=== PATIENT | female | born 1975 | race Caucasian/White ===

== ENCOUNTER → 2017-03-16 | Outpatient (CLI) | payer OTHER ==
[~2017-03-16] MED LIST: IBU-8800 MG PO; IMITREX PO; LOMOTIL 0.025 M1 TA1 PO; MACROBID100 M1 PO; MOTRIN800 MG PO; NORFLEX100 MG PO; PEN-VEE K500 MG PO; SYNTHROID,LEV150 MCG PO; VICODIN ES 7501 TAB PO; ZOFRAN ODT4 MG SL
[2017-03-16 16:09] LABS: ALBUMIN 3.4 gm/dl (3.1-4.5); ALKALINE PHOSPHATASE 75 U/L (45-117); BUN 16 mg/dl (7-24); CHLORIDE 104 mmol/L (98-107); CHOLESTEROL 191 mg/dL (<200); CREATININE 0.93 mg/dL (0.55-1.02); FREE T4 1.44 ng/dl (0.76-1.46); HDL CHOLESTEROL 71 mg/dl (40-60); LDL CHOLESTEROL 96 mg/dL (9-159); POTASSIUM 3.5 mmol/L (3.5-5.1); SGOT/AST 16 IU/L (3-35); SGPT/ALT 19 U/L (12-78); SODIUM 140 mmol/L (136-145); TRIGLYCERIDES 121 mg/dl (<150); VLDL CHOLESTEROL 24 mg/dL (6-40)
[2017-03-16 16:14] LABS: THYROID STIM HORMONE (HS) 0.103 uIU/ml (0.358-4.75)
== END | disposition home or self-care (01) ==
LOC: LAB 14:18 → MAMMO 14:40
PROVIDERS: Internal Medicine
DX: Z12.31 Encounter for screening mammogram for malignant neoplasm of breast (principal); E03.9 Hypothyroidism, unspecified; E78.2 Mixed hyperlipidemia

== ENCOUNTER → 2017-10-13 | Outpatient (CLI) | payer OTHER | END | disposition home or self-care (01) | LOC: RAD 11:39 | DX: S93.492A Sprain of other ligament of left ankle, initial encounter (principal); X58.XXXA Exposure to other specified factors, initial encounter; Y93.89 Activity, other specified; Y92.89 Other specified places as the place of occurrence of the external cause; Y99.8 Other external cause status ==

== ENCOUNTER → 2018-03-27 | Outpatient (CLI) | payer OTHER ==
[2018-03-27 08:37] LABS: ALBUMIN 3.2 gm/dl (3.1-4.5); ALKALINE PHOSPHATASE 75 U/L (45-117); BUN 18 mg/dl (7-24); CHLORIDE 105 mmol/L (98-107); CHOLESTEROL 184 mg/dL (<200); CREATININE 0.97 mg/dL (0.55-1.02); FREE T4 1.18 ng/dl (0.76-1.46); HDL CHOLESTEROL 66 mg/dl (40-60); LDL CHOLESTEROL 95 mg/dL (9-159); POTASSIUM 4.4 mmol/L (3.5-5.1); SGOT/AST 11 IU/L (3-35); SGPT/ALT 18 U/L (12-78); SODIUM 140 mmol/L (136-145); VLDL CHOLESTEROL 23 mg/dL (6-40)
[2018-03-27 08:42] LABS: THYROID STIM HORMONE (HS) 0.895 uIU/ml (0.358-4.75)
== END | disposition home or self-care (01) ==
LOC: LAB 07:46
PROVIDERS: Internal Medicine Endocrinology, Diabetes & Metabolism
DX: E03.9 Hypothyroidism, unspecified (principal); E78.2 Mixed hyperlipidemia

== ENCOUNTER 2018-06-19 22:03 | Emergency (ER) | payer OTHER ==
[~2018-06-19] VITALS: Ht 152.4 cm; Wt 90.7 kg
[~2018-06-19 22:03] MED LIST changes: -AMINOPHYLLIN200 MG PO; -AMOXICILLIN500 M2 PO
[2018-06-19 22:04] VITALS: BP 159/100
[2018-06-19 22:25] LABS: BILIRUBIN NEGATIVE (NEGATIVE); BLOOD 3+ (NEGATIVE); CLARITY CLOUDY (CLEAR); COLOR ORANGE (YELLOW); GLUCOSE TRACE (NEGATIVE); KETONE TRACE (NEGATIVE); LEUKO ESTERASE 3+ (NEGATIVE); NITRITE POSITIVE (NEGATIVE)
[2018-06-19 22:41] LABS: RBC TNTC rbc/hpf (0-2); WBC TNTC wbc/hpf (0-5)
[2018-06-19] MEDS ORDERED: AMINOPHYLLIN200 MG PO (22:52)
== END 2018-06-19 23:01 | disposition home or self-care (01) ==
LOC: ED 22:03
PROVIDERS: Physician Assistant
DX: N39.0 Urinary tract infection, site not specified (principal); Z87.440 Personal history of urinary (tract) infections; Z79.899 Other long term (current) drug therapy

== ENCOUNTER → 2018-06-19 | Outpatient (CLI) | payer OTHER ==
[~2018-06-19] MED LIST changes: +AMINOPHYLLIN200 MG PO; +AMOXICILLIN500 M2 PO
[2018-06-19 10:03] LABS: FREE T4 1.3 ng/dl (0.76-1.46); THYROID STIM HORMONE (HS) 1.99 uIU/ml (0.358-4.75)
== END | disposition home or self-care (01) ==
LOC: LAB 08:15
PROVIDERS: Internal Medicine Endocrinology, Diabetes & Metabolism
DX: E03.9 Hypothyroidism, unspecified (principal)

== ENCOUNTER 2018-07-05 20:24 | Emergency (ER) | payer OTHER ==
[~2018-07-05 20:24] MED LIST changes: +AMINOPHYLLIN200 MG PO
[2018-07-05 20:26] VITALS: BP 167/73
[2018-07-05] MEDS ORDERED: AMOXICILLIN500 M2 PO (20:52)
== END 2018-07-05 21:10 | disposition home or self-care (01) ==
LOC: ED 20:24
DX: K08.89 Other specified disorders of teeth and supporting structures (principal); Z79.2 Long term (current) use of antibiotics; Z79.899 Other long term (current) drug therapy

== ENCOUNTER → 2019-04-19 | Outpatient (CLI) | payer OTHER ==
[~2019-04-19] MED LIST changes: +AMOXICILLIN500 M2 PO
[2019-04-19 15:51] LABS: ALBUMIN 3.3 gm/dl (3.1-4.5); BUN 18 mg/dl (7-24); CHLORIDE 109 mmol/L (98-107); CHOLESTEROL 180 mg/dL (<200); SODIUM 140 mmol/L (136-145)
[2019-04-19 15:54] LABS: ALKALINE PHOSPHATASE 57 U/L (45-117); CREATININE 0.78 mg/dL (0.55-1.02); HDL CHOLESTEROL 79 mg/dl (40-60); LDL CHOLESTEROL 94 mg/dL (9-159); SGOT/AST 17 IU/L (3-35); SGPT/ALT 21 U/L (12-78); TOTAL PROTEIN 7.5 gm/dL (6.4-8.2); VLDL CHOLESTEROL 7 mg/dL (6-40)
[2019-04-19 16:00] LABS: FREE T4 1.17 ng/dl (0.76-1.46)
== END | disposition home or self-care (01) ==
LOC: LAB 14:38
PROVIDERS: Internal Medicine Endocrinology, Diabetes & Metabolism
DX: E03.9 Hypothyroidism, unspecified (principal); E78.2 Mixed hyperlipidemia

== ENCOUNTER → 2019-10-18 | Outpatient (CLI) | payer OTHER ==
[2019-10-18 16:21] LABS: ALBUMIN 3.7 gm/dl (3.1-4.5); ALKALINE PHOSPHATASE 59 U/L (45-117); BUN 21 mg/dl (7-24); CHLORIDE 107 mmol/L (98-107); CHOLESTEROL 207 mg/dL (<200); CREATININE 0.84 mg/dL (0.55-1.02); HDL CHOLESTEROL 88 mg/dl (40-60); LDL CHOLESTEROL 107 mg/dL (9-159); POTASSIUM 4.5 mmol/L (3.5-5.1); SGOT/AST 13 IU/L (3-35); SGPT/ALT 22 U/L (12-78); SODIUM 138 mmol/L (136-145); TOTAL PROTEIN 8.4 gm/dL (6.4-8.2); TRIGLYCERIDES 60 mg/dl (<150); VLDL CHOLESTEROL 12 mg/dL (6-40)
[2019-10-18 16:22] LABS: FREE T4 1.19 ng/dl (0.76-1.46)
[2019-10-19 04:06] LABS: LDL CHOLESTEROL (DIRECT) 110 mg/dL (0-99)
== END ==
LOC: LAB 15:06
PROVIDERS: Internal Medicine Endocrinology, Diabetes & Metabolism
DX: E03.9 Hypothyroidism, unspecified (principal); E78.2 Mixed hyperlipidemia

== ENCOUNTER → 2020-03-05 | Outpatient (CLI) | payer OTHER ==
[2020-03-05 13:50] LABS: FREE T4 1.1 ng/dl (0.76-1.46); THYROID STIM HORMONE (HS) 1.45 uIU/ml (0.358-4.75)
[2020-03-06 09:10] LABS: LDL CHOLESTEROL (DIRECT) 100 mg/dL (0-99)
== END | disposition home or self-care (01) ==
LOC: LAB 12:30
PROVIDERS: ATTEND Internal Medicine Endocrinology, Diabetes & Metabolism
DX: E03.9 Hypothyroidism, unspecified (principal); E78.2 Mixed hyperlipidemia

== ENCOUNTER → 2020-05-04 | Outpatient (CLI) | payer OTHER | END | disposition home or self-care (01) | LOC: COVID19 13:54 | PROVIDERS: ATTEND Family Medicine | DX: Z20.828 Contact with and (suspected) exposure to other viral communicable diseases (principal) ==

== ENCOUNTER → 2020-05-18 | Outpatient (CLI) | payer OTHER ==
[2020-05-18 15:43] LABS: ALBUMIN 3.8 gm/dl (3.1-4.5); ALKALINE PHOSPHATASE 59 U/L (45-117); BUN 19 mg/dl (7-24); CHLORIDE 105 mmol/L (98-107); CHOLESTEROL 217 mg/dL (<200); FREE T4 1.24 ng/dl (0.76-1.46); HDL CHOLESTEROL 84 mg/dl (40-60); POTASSIUM 3.7 mmol/L (3.5-5.1); SGOT/AST 16 IU/L (3-35); SODIUM 138 mmol/L (136-145); TOTAL PROTEIN 8.2 gm/dL (6.4-8.2)
[2020-05-18 15:47] LABS: LDL CHOLESTEROL 115 mg/dL (9-159); SGPT/ALT 17 U/L (12-78); VLDL CHOLESTEROL 18 mg/dL (6-40)
== END | disposition home or self-care (01) ==
LOC: LAB 13:37
PROVIDERS: ATTEND Internal Medicine Endocrinology, Diabetes & Metabolism
DX: E03.9 Hypothyroidism, unspecified (principal); E78.2 Mixed hyperlipidemia

== ENCOUNTER 2020-08-19 11:52 | Emergency (ER) | payer OTHER ==
[2020-08-19 12:08] VITALS: BP 126/77
[2020-08-19 12:48] LABS: BILIRUBIN Negative (Negative); BLOOD Trace-Lysed (Negative); CLARITY Cloudy (Clear); COLOR Yellow (Yellow); GLUCOSE Negative (Negative); KETONE Trace (Negative); LEUKO ESTERASE 1+ (Negative); NITRITE Negative (Negative); SPECIFIC GRAVITY >= 1.030 (1.001-1.030); UROBILINOGEN 0.2 E.U./dl (0.0-1.0)
[2020-08-19 13:09] LABS: BACTERIA 3+; WBC 16-20 wbc/hpf (0-5)
[2020-08-19] MEDS ORDERED: SEPTDS PO (13:54)
[2020-08-19] MEDS ORDERED: PYRIDIUM200 M1 PO (13:54)
== END 2020-08-19 14:24 | disposition home or self-care (01) ==
LOC: ED 11:52
PROVIDERS: Physician Assistant
DX: N39.0 Urinary tract infection, site not specified (principal); Z79.2 Long term (current) use of antibiotics; Z79.899 Other long term (current) drug therapy; Z98.890 Other specified postprocedural states

== ENCOUNTER → 2021-02-16 | Outpatient (CLI) | payer OTHER ==
[~2021-02-16] MED LIST changes: +PYRIDIUM200 M1 PO; +SEPTDS PO
[2021-02-16 09:26] LABS: ALBUMIN 3.7 gm/dl (3.1-4.5); ALKALINE PHOSPHATASE 75 U/L (45-117); BUN 15 mg/dl (7-24); CHLORIDE 105 mmol/L (98-107); CHOLESTEROL 183 mg/dL (<200); CREATININE 0.75 mg/dL (0.55-1.02); FREE T4 1.45 ng/dl (0.76-1.46); LDL CHOLESTEROL 90 mg/dL (9-159); POTASSIUM 3.9 mmol/L (3.5-5.1); SGOT/AST 12 IU/L (3-35); SGPT/ALT 20 U/L (12-78); SODIUM 139 mmol/L (136-145); TOTAL PROTEIN 8.5 gm/dL (6.4-8.2)
== END | disposition home or self-care (01) ==
LOC: LAB 08:17
PROVIDERS: ATTEND Internal Medicine Endocrinology, Diabetes & Metabolism
DX: E03.9 Hypothyroidism, unspecified (principal); E78.2 Mixed hyperlipidemia

== ENCOUNTER → 2021-07-19 | Outpatient (CLI) | payer OTHER | END | disposition home or self-care (01) | LOC: US 12:54 | PROVIDERS: ATTEND Internal Medicine | DX: N13.39 Other hydronephrosis (principal); R31.9 Hematuria, unspecified ==

== ENCOUNTER → 2021-10-29 | Outpatient (CLI) | payer OTHER ==
[2021-10-29 09:12] LABS: BUN 16 mg/dl (7-24); CHLORIDE 110 mmol/L (98-107); CREATININE 0.74 mg/dL (0.55-1.02); POTASSIUM 4.1 mmol/L (3.5-5.1); SGPT/ALT 17 U/L (12-78); SODIUM 139 mmol/L (136-145)
[2021-10-29 09:16] LABS: ALKALINE PHOSPHATASE 65 U/L (45-117); CHOLESTEROL 183 mg/dL (<200); FREE T4 1.05 ng/dl (0.76-1.46); LDL CHOLESTEROL 102 mg/dL (9-159); SGOT/AST 8 IU/L (3-35); THYROID STIM HORMONE (HS) 0.845 uIU/ml (0.358-4.75); TOTAL PROTEIN 7.6 gm/dL (6.4-8.2); TRIGLYCERIDES 77 mg/dl (<150)
[2021-10-30 04:06] LABS: LDL CHOLESTEROL (DIRECT) 114 mg/dL (0-99)
== END | disposition home or self-care (01) ==
LOC: LAB 08:33
PROVIDERS: ATTEND Internal Medicine Nephrology
DX: E78.2 Mixed hyperlipidemia (principal); E03.9 Hypothyroidism, unspecified

== ENCOUNTER → 2021-11-10 | Outpatient (CLI) | payer OTHER ==
[2021-11-10 15:08] LABS: BASO # 0.1 10*3/uL (0.0-0.1); BASO % 0.6 % (0.0-1.0); EOS # 0.2 10*3/uL (0.0-0.4); EOS % 1.9 % (1.0-4.0); HEMATOCRIT 41.7 % (37.0-47.0); LYMPH % 22.7 % (27.0-41.0); MEAN CELL VOLUME 84.6 fl (81.0-99.0); MEAN CORPUSCULAR HGB 27.8 pg (27.0-31.0); MEAN CORPUSCULAR HGB CONC 32.9 g/dl (33.0-37.0); MEAN PLATELET VOLUME 10.1 fl (9.6-12.3); MONO # 0.5 10*3/uL (0.1-1.0); MONO % 5.9 % (3.0-9.0); NEUT # 6.1 10*3/uL (2.3-7.9); NEUT % 68.7 % (47.0-73.0); PLATELET COUNT AUTOMATED 322 10*3/uL (130-400); RED BLOOD COUNT 4.93 10*6/uL (4.10-5.10); RED CELL DISTRI WIDTH 13.3 % (0-14.5); WHITE BLOOD COUNT 8.9 10*3/uL (4.8-10.8)
[2021-11-10 15:28] LABS: TOTAL IRON BINDING CAPACITY 330 ug/dl (250-450)
[2021-11-10 15:30] LABS: IRON 53 ug/dL (50-170)
== END | disposition home or self-care (01) ==
LOC: LAB 14:55
PROVIDERS: ATTEND Internal Medicine Endocrinology, Diabetes & Metabolism
DX: R53.83 Other fatigue (principal)

== ENCOUNTER → 2022-05-03 | Outpatient (CLI) | payer OTHER | END | disposition home or self-care (01) | LOC: RAD 13:15 | PROVIDERS: ATTEND Internal Medicine | DX: M25.511 Pain in right shoulder (principal) ==

== ENCOUNTER → 2022-05-17 | Outpatient (CLI) | payer OTHER | END | disposition home or self-care (01) | LOC: MAMMO 02:36 | PROVIDERS: ATTEND Internal Medicine | DX: Z12.31 Encounter for screening mammogram for malignant neoplasm of breast (principal) ==

== ENCOUNTER → 2024-03-27 | Outpatient (CLI) | payer OTHER | END | disposition home or self-care (01) | LOC: LAB 13:43 | PROVIDERS: ATTEND Internal Medicine | DX: Z83.49 Family history of other endocrine, nutritional and metabolic diseases (principal) ==

== ENCOUNTER → 2024-04-26 | Outpatient (CLI) | payer OTHER | END | disposition home or self-care (01) | LOC: LAB 10:36 | PROVIDERS: ATTEND Internal Medicine | DX: Z15.89 Genetic susceptibility to other disease (principal) ==

== ENCOUNTER → 2024-09-02 | Outpatient (CLI) | payer OTHER ==
[2024-09-02 11:45] LABS: BASO # 0.1 10*3/uL (0.0-0.1); BASO % 0.7 % (0.0-1.0); EOS # 0.3 10*3/uL (0.0-0.4); EOS % 4.6 % (1.0-4.0); HEMATOCRIT 41.4 % (37.0-47.0); MEAN CORPUSCULAR HGB 26.7 pg (27.0-31.0); MEAN CORPUSCULAR HGB CONC 32.1 g/dl (33.0-37.0); MEAN PLATELET VOLUME 9.3 fl (9.6-12.3); MONO # 0.5 10*3/uL (0.1-1.0); MONO % 7.2 % (3.0-9.0); NEUT # 4.4 10*3/uL (2.3-7.9); NEUT % 62.7 % (47.0-73.0); PLATELET COUNT AUTOMATED 285 10*3/uL (130-400); RED BLOOD COUNT 4.99 10*6/uL (4.10-5.10); RED CELL DISTRI WIDTH 13.6 % (0-14.5)
[2024-09-02 12:07] LABS: ALKALINE PHOSPHATASE 89 U/L (46-116); BUN 17 mg/dl (9-23); CHLORIDE 103 mmol/L (98-107); CHOLESTEROL 190 mg/dL (<200); FREE T4 1.54 ng/dl (0.89-1.76); LDL CHOLESTEROL 105 mg/dL (9-159); POTASSIUM 4.2 mmol/L (3.4-5.1); SGPT/ALT 14 U/L (5-49); TRIGLYCERIDES 109 mg/dl (<150)
[2024-09-02 12:13] LABS: VITAMIN D, 25-HYDROXY 56.9 ng/mL (30-100)
== END | disposition home or self-care (01) ==
LOC: LAB 11:14
PROVIDERS: ATTEND Internal Medicine
DX: E55.9 Vitamin D deficiency, unspecified (principal); E53.9 Vitamin B deficiency, unspecified; R53.83 Other fatigue; E07.9 Disorder of thyroid, unspecified

== ENCOUNTER 2024-12-16 10:36 | Emergency (ER) | payer OTHER ==
[~2024-12-16] VITALS: Ht 152.4 cm; Wt 92.5 kg
[2024-12-16 10:58] VITALS: BP 124/70
[2024-12-16 11:25] LABS: BASO # 0.0 10*3/uL (0.0-0.1); BASO % 0.5 % (0.0-1.0); EOS # 0.3 10*3/uL (0.0-0.4); EOS % 3.4 % (1.0-4.0); MEAN CELL VOLUME 84.6 fl (81.0-99.0); MEAN CORPUSCULAR HGB 26.9 pg (27.0-31.0); MEAN PLATELET VOLUME 9.7 fl (9.6-12.3); MONO # 0.5 10*3/uL (0.1-1.0); MONO % 6.1 % (3.0-9.0); NEUT # 5.4 10*3/uL (2.3-7.9); NEUT % 70.9 % (47.0-73.0); NUCLEATED RED BLOOD CELL 0.0 % (0.0-0.0); NUCLEATED RED BLOOD CELL 0.0 10*3/uL (0.0-0.0); PLATELET COUNT AUTOMATED 286 10*3/uL (130-400); RED CELL DISTRI WIDTH 13.5 % (0-14.5)
[2024-12-16 11:29] LABS: BILIRUBIN Negative (Negative); BLOOD 1+ (Negative); CLARITY Clear (Clear); COLOR Dark Yellow (Yellow); KETONE Negative (Negative); LEUKO ESTERASE Negative (Negative); NITRITE Positive (Negative); PH 6.0 (4.5-8.0); SPECIFIC GRAVITY 1.020 (1.001-1.030); UROBILINOGEN 1.0 E.U./dl (0.0-1.0)
[2024-12-16 11:45] LABS: BUN 19 mg/dl (9-23)
[2024-12-16] MEDS ORDERED: CEPHALEXIN500 M1 PO (12:11)
== END 2024-12-16 12:58 | disposition home or self-care (01) ==
LOC: ED 10:36
PROVIDERS: Nurse Practitioner
DX: N39.0 Urinary tract infection, site not specified (principal)

== ENCOUNTER 2024-12-22 13:20 | Emergency (ER) | payer OTHER ==
[~2024-12-22] VITALS: Ht 152.4 cm; Wt 92.5 kg
[~2024-12-22 13:20] MED LIST changes: +CEPHALEXIN500 M1 PO
[2024-12-22 13:32] VITALS: BP 126/70
[2024-12-22] MEDS ORDERED: VICTOZA 2-0.6 MG/0.1 SQ (13:34)
[2024-12-22] MEDS ORDERED: SYNTHROID,LEV175 MCG PO (13:34)
[2024-12-22] MEDS ORDERED: PREDNISONE20 M1 PO (13:43)
[2024-12-22] MEDS ORDERED: METHOCARBAMOL750 M1 PO (13:43)
[2024-12-22] MEDS ORDERED: NAPROSYN500 MG PO (13:43)
[2024-12-22] MEDS ORDERED: Dexamethasone Sodium Phospha 20 MG/5 ML VIAL IM ONE (13:45)
== END 2024-12-22 13:45 | disposition home or self-care (01) ==
LOC: ED 13:20
DX: S29.012A Strain of muscle and tendon of back wall of thorax, initial encounter (principal); R35.0 Frequency of micturition; R20.2 Paresthesia of skin; Z79.899 Other long term (current) drug therapy; X58.XXXA Exposure to other specified factors, initial encounter; Y93.89 Activity, other specified; Y92.89 Other specified places as the place of occurrence of the external cause; Y99.8 Other external cause status

== ENCOUNTER → 2025-03-11 | Outpatient (CLI) | payer OTHER ==
[~2025-03-11] MED LIST changes: +METHOCARBAMOL750 M1 PO; +NAPROSYN500 MG PO; +PREDNISONE20 M1 PO; +SYNTHROID,LEV175 MCG PO; +VICTOZA 2-0.6 MG/0.1 SQ
== END | disposition home or self-care (01) ==
LOC: MAMMO 14:34
PROVIDERS: ATTEND Internal Medicine
DX: Z12.31 Encounter for screening mammogram for malignant neoplasm of breast (principal)